=== PATIENT | female | born 1960 | race African-American/Black ===

== ENCOUNTER → 2024-08-28 | Outpatient (REF) | payer OTHER ==
[~2024-08-28] MED LIST: ACETAMINOPHEN/CODEINE 300MG - 30MG TAB ONE; LIDOCAINE HCL 1% 30ML-PF VIAL ONE
[2024-08-28 09:59] LABS: BASOPHILS % 0.6 % (0.0-1.0); EOSINOPHILS # (AUTO) 0.1 (0.0-0.4); EOSINOPHILS % 1.9 % (0.0-6.0); HEMATOCRIT 35.8 % (34.2-44.1); HEMOGLOBIN 12.3 g/dL (12.0-16.0); LYMPHOCYTES # (AUTO) 1.8 (1.0-3.2); LYMPHOCYTES % 48.6 % (18.0-39.1); MEAN CORPUSCULAR HEMOGLOBIN 31.5 pg (28-32); MEAN CORPUSCULAR HGB CONC 34.4 g/dL (31-35); MEAN CORPUSCULAR VOLUME 91.8 fL (81-99); MONOCYTES # (AUTO) 0.5 (0.2-0.8); MONOCYTES % 13.6 % (4.4-11.3); NEUTROPHILS # (AUTO) 1.3 (2.1-6.9); NEUTROPHILS % 35.3 % (38.7-80.0); PLATELET COUNT 291 x10e3/uL (140-360); RED CELL DISTRIBUTION WIDTH 12.9 % (11.7-14.4)
[2024-08-28 10:23] LABS: INR 0.82; PROTHROMBIN TIME 12.1 seconds (11.9-14.5)
[2024-08-28 10:24] LABS: PARTIAL THROMBOPLASTIN TIME 29.8 seconds (23.8-35.5)
== END ==
LOC: DX 09:28
PROVIDERS: ATTEND Neurological Surgery
DX: G93.2 Benign intracranial hypertension (principal); H93.A9 Pulsatile tinnitus, unspecified ear
CPT/HCPCS: 36415; 62328; 85025; 85610; 85730; J2003